=== PATIENT | female | born 1985 | race Two or more races ===

== ENCOUNTER → 2024-10-02 | Outpatient (CLI) | payer BC, SELFPAY ==
--- NOTE | 2024-10-02 11:00 | XR_ITS ---
Examination: Diagnostic digital mammography, unilateral, right Computer aided detection 3-D breast Tomosynthesis, unilateral Date and time of exam: October 02, 2024 1121 hours INDICATIONS: Mammogram April 06, 2024 14 mm focal asymmetry 3:00 position right breast Technique: Nonmagnified MLO, CC views of the right breast have been obtained, reconstructed from 3-D Tomosynthesis images. R2 computer aided detection program utilized for evaluation of suspicious masses and/or abnormal calcifications. 3-D Tomosynthesis images obtained. Findings: The breast is seen, which may obscure small masses Focal asymmetry stable in the inner right breast CC view Impression: BI-RADS category 3: Probably benign findings Recommend bilateral six-month mammography follow-up
== END | disposition home or self-care (01) ==
LOC: CDIM 11:04
PROVIDERS: PCP Internal Medicine; Referring Provider Internal Medicine; Visit Provider Specialist
DX: R92.321 Mammographic fibroglandular density, right breast (principal)
CPT/HCPCS: 77061; 77065; G0279

== ENCOUNTER → 2025-02-11 | Outpatient (CLI) | payer BC, SELFPAY ==
[2025-02-11 11:40] LABS: Collection Type, Urine Clean Catch
[2025-02-11 11:58] LABS: Basophils # (Auto) 0.1 Thou/mm3 (0.0-0.2); Basophils % (Auto) 1 % (0-2.5); Eosinophils # (Auto) 0.2 Thou/mm3 (0.0-0.5); Eosinophils % (Auto) 2 % (0-10); Hemoglobin 9.9 g/dL (12.0-16.0); Immature Granulocytes % (Auto) 0 % (0-0); Immature Granulocytes Auto 0.04 Thou/mm3 (0.00-0.00); Lymphocytes # (Auto) 2.2 Thou/mm3 (1.0-4.8); Lymphocytes % (Auto) 22 % (10-50); Mean Corpuscular HGB Conc 28.3 g/dl (31.0-37.0); Mean Corpuscular Hemoglobin 17.1 pg (25.0-35.0); Mean Corpuscular Volume 61 fL (80-100); Monocytes # (Auto) 0.6 Thou/mm3 (0.0-0.8); Monocytes % (Auto) 6 % (0-12); Neutrophils % (Auto) 69 % (37-80); Nucleated Red Blood Cell % 0 /100 WBC (0); Platelet Count 448 Thou/mm3 (140-440); Red Blood Count 5.78 Miln/mm3 (4.00-5.20); White Blood Count 10.1 Thou/mm3 (3.6-11.0)
[2025-02-11 12:05] LABS: Bilirubin,Urine Negative (Negative); Blood,Urine Negative (Negative); Color,Urine Yellow (Lt Yel-Yel); Culture Indicated,Urine Not Indicated; Glucose, Urine Negative (Negative); Ketones,Urine Negative (Negative); Leukocyte Esterase,Urine Negative (Negative); Nitrite,Urine Negative (Negative); Protein,Urine 1+ (Neg - Trace); RBC,Urine 10 /hpf (0-3); Specific Gravity,Urine 1.034 (1.001-1.035); Squamous Epithelial Cell,Urine 20 /hpf (0-5); Urobilinogen,Urine Negative mg/dL (0.0-1.0); WBC,Urine 6 /hpf (0-5)
[2025-02-11 12:19] LABS: Clarity,Urine Hazy (Clear/Hazy)
[2025-02-11 12:22] LABS: Glucose Estimated Average 114 mg/dL (80-131); Hemoglobin A1C 5.6 % Hgb (4.8-6.0)
[2025-02-11 12:43] LABS: Alanine Aminotransferase 13 U/L (10-49); Albumin, Serum 4.5 gm/dL (3.5-5.0); Albumin/Globulin Ratio 1.7 (1.2-2.2); Alkaline Phosphatase 86 U/L (46-116); Anion Gap 9 (7-16); Aspartate Amino Transferase 14 U/L (0-34); BUN/Creatinine Ratio 14 Ratio (12-20); Bilirubin,Total 0.4 mg/dL (0.3-1.2); Blood Urea Nitrogen 10 mg/dL (9-23); Calcium 9.4 mg/dL (8.3-10.6); Calcium (Corrected) 9.4 mg/dL (8.5-10.1); Carbon Dioxide 25.8 mMol/L (20.0-31.0); Cardiac Risk Estimate 2.6 RATIO (3.7-5.6); Chloride 103 mMol/L (98-107); Cholesterol 194 mg/dL (132-200); Creatinine (Component) 0.7 mg/dL (0.6-1.3); Free T4 (Free Thyroxine) 0.92 ng/dL (0.89-1.76); Globulin 2.7 gm/dL (2.3-3.5); Glucose 101 mg/dL (74-106); HDL Cholesterol 74 mg/dL (40-60); LDL Cholesterol,Calculated 100 mg/dL (0-130); Osmolality,Calculated 274 (275-295); Potassium 4.2 mMol/L (3.4-5.1); Sodium 138 mMol/L (136-145); Thyroid Stimulating Hormone 3.83 uIU/mL (0.55-4.78); Total Protein 7.2 gm/dL (5.7-8.2); Triglycerides 101 mg/dL (30-150); eGFR > 60 See Note
== END | disposition home or self-care (01) ==
LOC: COPL 11:11
PROVIDERS: PCP Internal Medicine; Referring Provider Internal Medicine; Visit Provider Internal Medicine
DX: I10 Essential (primary) hypertension (principal)
CPT/HCPCS: 36415; 80053; 80061; 81001; 83036; 84439; 84443; 85025

== ENCOUNTER → 2025-02-13 | Outpatient (CLI) | payer BC, SELFPAY ==
[2025-02-13 11:53] LABS: Basophils # (Auto) 0.1 Thou/mm3 (0.0-0.2); Basophils % (Auto) 1 % (0-2.5); Eosinophils # (Auto) 0.2 Thou/mm3 (0.0-0.5); Eosinophils % (Auto) 2 % (0-10); Hematocrit 35.1 % (36.0-46.0); Hemoglobin 10.1 g/dL (12.0-16.0); Immature Granulocytes % (Auto) 0 % (0-0); Immature Granulocytes Auto 0.03 Thou/mm3 (0.00-0.00); Immature Reticulocyte Fraction 28.9 % (3.0-15.9); Lymphocytes # (Auto) 2.6 Thou/mm3 (1.0-4.8); Lymphocytes % (Auto) 24 % (10-50); Mean Corpuscular HGB Conc 28.8 g/dl (31.0-37.0); Mean Corpuscular Hemoglobin 17.1 pg (25.0-35.0); Mean Corpuscular Volume 60 fL (80-100); Monocytes # (Auto) 0.7 Thou/mm3 (0.0-0.8); Monocytes % (Auto) 6 % (0-12); Neutrophils # (Auto) 7.2 Thou/mm3 (1.8-7.7); Neutrophils % (Auto) 67 % (37-80); Nucleated Red Blood Cell % 0 /100 WBC (0); Platelet Count 440 Thou/mm3 (140-440); RDW Standard Deviation 43.4 fL (36.4-46.3); Red Blood Count 5.89 Miln/mm3 (4.00-5.20); Reticulocyte Absolute Auto 58.9 Biln/L (25.0-75.0); Reticulocyte Hgb Content 18.1 pg (28.0-35.0); White Blood Count 10.8 Thou/mm3 (3.6-11.0)
[2025-02-13 12:21] LABS: Folate 21.94 ng/mL (>5.38); Vitamin B12 637 pg/mL (211-911)
[2025-02-13 12:22] LABS: Ferritin 2 ng/mL (7.3-270.7); Iron 19 mcg/dL (50-170); Percent Iron Saturation 3 % (20-55); Total Iron Binding Capacity 496 mcg/dL (250-425); Unsaturated Iron Binding 477 (225-295)
[2025-02-13 12:39] LABS: Path Review Blood Smear Sent to Pathologist
== END | disposition home or self-care (01) ==
LOC: COPL 10:49
PROVIDERS: PCP Internal Medicine; Referring Provider Internal Medicine; Visit Provider Internal Medicine
DX: D50.0 Iron deficiency anemia secondary to blood loss (chronic) (principal)
CPT/HCPCS: 36415; 82607; 82728; 82746; 83540; 83550; 85025; 85046

== ENCOUNTER → 2025-03-20 | Outpatient (CLI) | payer BC, SELFPAY ==
[2025-03-20 17:15] LABS: BVAG Candida Negative (Negative); Bacterial Vaginosis Markers Positive (Negative); Candida glabrata Negative (Negative); Candida krusei PCR Negative (Negative); Trichomonas Negative (Negative)
== END | disposition home or self-care (01) ==
LOC: SLDO 14:10
PROVIDERS: Referring Provider Physician Assistant Medical; Visit Provider Physician Assistant Medical
DX: A59.01 Trichomonal vulvovaginitis (principal); B37.89 Other sites of candidiasis; N76.0 Acute vaginitis
CPT/HCPCS: 81514

== ENCOUNTER → 2025-04-02 | Outpatient (CLI) | payer BC, SELFPAY ==
--- NOTE | 2025-04-02 11:00 | XR_ITS ---
Examination: Diagnostic digital mammography, bilateral Computer aided detection 3-D breast Tomosynthesis, bilateral Date and time of exam: April 02, 2000 2519 hours Compared to mammograms dating to September 20, 2019 INDICATIONS: Family history, mother breast cancer, mammogram October 02, 2024 focal asymmetry inner right breast CC view first noticed on mammogram 07/07/2024 Technique: Nonmagnified MLO, CC views of the breasts to been obtained, reconstructed from 3-D Tomosynthesis images. R2 computer aided detection program utilized for evaluation of suspicious masses and/or abnormal calcifications. 3-D Tomosynthesis images obtained. Findings: The breasts are heterogeneously dense, which may obscure small masses Stable focal asymmetry right breast 16mm marginated nodule upper outer left breast anterior depth Impression: BI-RADS Category 0: Incomplete: Need additional imaging evaluation. Recommend bilateral breast sonography follow-up
== END | disposition home or self-care (01) ==
PROVIDERS: PCP Internal Medicine; Referring Provider Specialist; Visit Provider Specialist
DX: R92.8 Other abnormal and inconclusive findings on diagnostic imaging of breast (principal)
CPT/HCPCS: 77062; 77066; G0279

== ENCOUNTER → 2025-04-30 | Outpatient (CLI) | payer BC, SELFPAY ==
--- NOTE | 2025-04-30 13:00 | XR_ITS ---
Examination: Breast ultrasound complete, bilateral Date and time of exam: April 30, 2025 1357 hours INDICATIONS: 16mm marginated nodule upper left breast and focal asymmetry right breast on mammogram April 02, 2025 Technique: Real-time grayscale ultrasonographic imaging bilateral breasts, including all 4 quadrants as well as nipple retroareolar and axillary regions. Findings: Sonographic images right breast 6:00 nodule versus glandular tissue 8 x 5 mm 6:00 cyst 2 x 2 mm 8:00 cyst 5 x 6 mm Sonographic images left breast 5:00 cyst 3 x 3 mm IMPRESSION: BI-RADS Category 3: Probably benign findings One additional 6 month right breast sonogram follow-up is needed to document stability of 6:00 nodule described above
== END | disposition home or self-care (01) ==
PROVIDERS: PCP Specialist; Referring Provider Internal Medicine; Visit Provider Internal Medicine
DX: N60.11 Diffuse cystic mastopathy of right breast (principal); N60.02 Solitary cyst of left breast
CPT/HCPCS: 76641

== ENCOUNTER → 2025-08-15 | Outpatient (CLI) | payer BC, SELFPAY ==
[2025-08-15 12:40] LABS: Basophils # (Auto) 0.1 Thou/mm3 (0.0-0.2); Basophils % (Auto) 1 % (0-2.5); Eosinophils # (Auto) 0.2 Thou/mm3 (0.0-0.5); Eosinophils % (Auto) 2 % (0-10); Hematocrit 33.1 % (36.0-46.0); Hemoglobin 10.2 g/dL (12.0-16.0); Immature Granulocytes Auto 0.02 Thou/mm3 (0.00-0.00); Lymphocytes # (Auto) 1.8 Thou/mm3 (1.0-4.8); Lymphocytes % (Auto) 25 % (10-50); Mean Corpuscular HGB Conc 30.8 g/dl (31.0-37.0); Mean Corpuscular Hemoglobin 20.8 pg (25.0-35.0); Mean Corpuscular Volume 67 fL (80-100); Monocytes # (Auto) 0.5 Thou/mm3 (0.0-0.8); Monocytes % (Auto) 7 % (0-12); Neutrophils # (Auto) 4.8 Thou/mm3 (1.8-7.7); Neutrophils % (Auto) 65 % (37-80); Nucleated Red Blood Cell # 0.00 Thou/mm3 (0.00-0.00); Nucleated Red Blood Cell % 0 /100 WBC (0); Platelet Count 348 Thou/mm3 (140-440); RDW Standard Deviation 44.8 fL (36.4-46.3); Red Blood Count 4.91 Miln/mm3 (4.00-5.20); White Blood Count 7.3 Thou/mm3 (3.6-11.0)
[2025-08-15 12:52] LABS: Glucose Estimated Average 114 mg/dL (80-131); Hemoglobin A1C 5.6 % Hgb (4.8-6.0)
[2025-08-15 12:59] LABS: Collection Type, Urine Clean Catch
[2025-08-15 13:10] LABS: Alanine Aminotransferase 20 U/L (10-49); Albumin, Serum 4.6 gm/dL (3.5-5.0); Albumin/Globulin Ratio 1.8 (1.2-2.2); Alkaline Phosphatase 69 U/L (46-116); Anion Gap 9 (7-16); Aspartate Amino Transferase 19 U/L (0-34); BUN/Creatinine Ratio 13 Ratio (12-20); Beta HCG,Quantitative < 1 mIU/mL (<5.0); Bilirubin,Total 0.4 mg/dL (0.3-1.2); Blood Urea Nitrogen 8 mg/dL (9-23); Calcium 9.3 mg/dL (8.3-10.6); Calcium (Corrected) 9.3 mg/dL (8.5-10.1); Carbon Dioxide 26.6 mMol/L (20.0-31.0); Cardiac Risk Estimate 2.6 RATIO (3.7-5.6); Chloride 105 mMol/L (98-107); Cholesterol 195 mg/dL (132-200); Creatinine (Component) 0.6 mg/dL (0.6-1.3); Ferritin 3 ng/mL (7.3-270.7); Free T4 (Free Thyroxine) 1.05 ng/dL (0.89-1.76); Globulin 2.5 gm/dL (2.3-3.5); Glucose 87 mg/dL (74-106); HDL Cholesterol 76 mg/dL (40-60); Iron 22 mcg/dL (50-170); LDL Cholesterol,Calculated 108 mg/dL (0-130); Osmolality,Calculated 278 (275-295); Percent Iron Saturation 4 % (20-55); Potassium 3.7 mMol/L (3.4-5.1); Sodium 141 mMol/L (136-145); Thyroid Stimulating Hormone 3.57 uIU/mL (0.55-4.78); Total Iron Binding Capacity 480 mcg/dL (250-425); Total Protein 7.1 gm/dL (5.7-8.2); Triglycerides 53 mg/dL (30-150); Unsaturated Iron Binding 458 (225-295); eGFR > 60 See Note
[2025-08-15 13:21] LABS: Folate 18.86 ng/mL (>5.38); Follicle Stimulating Hormone 47.98 mIU/mL (See Note); Hepatitis B Surface Antigen Non Reactive (Non React); Vitamin B12 565 pg/mL (211-911)
[2025-08-15 13:26] LABS: Syphilis Nonreactive (Nonreactive)
[2025-08-15 13:45] LABS: Bilirubin,Urine Negative (Negative); Blood,Urine Negative (Negative); Clarity,Urine Clear (Clear/Hazy); Color,Urine Lt-Yellow (Lt Yel-Yel); Culture Indicated,Urine Not Indicated; Glucose, Urine Negative (Negative); Ketones,Urine Negative (Negative); Leukocyte Esterase,Urine Negative (Negative); Nitrite,Urine Negative (Negative); PH,Urine 7.0 (5.0-7.0); Protein,Urine Negative (Neg - Trace); RBC,Urine 5 /hpf (0-3); Specific Gravity,Urine 1.020 (1.001-1.035); Squamous Epithelial Cell,Urine 5 /hpf (0-5); Urobilinogen,Urine Negative mg/dL (0.0-1.0); WBC,Urine 1 /hpf (0-5)
[2025-08-16 09:37] LABS: BVAG Candida Negative (Negative); Bacterial Vaginosis Markers Negative (Negative); Candida glabrata Negative (Negative); Candida krusei PCR Negative (Negative); Trichomonas Negative (Negative)
[2025-09-02 23:34] LABS: HCV RNA, PCR <15 NOT DETECTED IU/mL
[2025-09-03 07:22] LABS: 17-Hydroxyprogesterone* 15 ng/dL; DHEA Sulfate* 124 mcg/dL (19-231); Estradiol, Ultrasensitive* 13 pg/mL; HCV RNA, PCR Log IU <1.18 NOT DETECTED Log IU/mL; HIV Ag/Ab, 4th Gen NON-REACTIVE; Luteinizing Hormone* 15.8 mIU/mL; Progesterone,LC/MS* <0.1 ng/mL; Prolactin* 7.0 ng/mL; Testosterone, Free,Dialysis 1.4 pg/mL (0.1-6.4); Testosterone, Total, Dialysis 18 ng/dL (2-45)
== END | disposition home or self-care (01) ==
PROVIDERS: PCP Internal Medicine; Referring Provider Specialist; Visit Provider Specialist
DX: I10 Essential (primary) hypertension (principal); D50.0 Iron deficiency anemia secondary to blood loss (chronic); N92.0 Excessive and frequent menstruation with regular cycle; N93.9 Abnormal uterine and vaginal bleeding, unspecified; Z11.3 Encounter for screening for infections with a predominantly sexual mode of transmission; B37.89 Other sites of candidiasis; N76.0 Acute vaginitis; A59.01 Trichomonal vulvovaginitis
CPT/HCPCS: 36415; 80053; 80061; 81001; 81514; 82607; 82627; 82670; 82728; 82746; 83001; 83002; 83036; 83498; 83540; 83550; 84144; 84146; 84402; 84403; 84439; 84443; 84702; 85025; 86780; 87340; 87389; 87522